=== PATIENT | male | born 1975 | race Caucasian/White ===

== ENCOUNTER 2016-07-21 16:47 | Emergency (ER) | payer OTHER | END 2016-07-21 18:11 | disposition home or self-care (01) | DX: R07.9 Chest pain, unspecified (principal) ==

== ENCOUNTER 2017-07-29 16:34 | Outpatient (CLI) | payer OTHER ==
--- NOTE | 2017-07-30 15:46 | MRI Report ---
EXAM: MRI LUMBAR SPINE WITHOUT CONTRAST EXAM DATE: 07/29/2017 04:45 PM. CLINICAL HISTORY: Low back pain. COMPARISON: Lumbar spine MRI from 02/22/2016. TECHNIQUE: Multiplanar, multisequence T1-weighted and fluid-sensitive sequences of the lumbar spine f rom T12 to S1 without contrast. Other: None. FINDINGS: Spinal Cord: The conus terminates at L1. The conus medullaris and cauda equina are unremarkable. Alignment: Retrolisthesis at L5-S1 measures 5 mm, stable. Bone Marrow: Five [id number] lumbar vertebral bodies are assumed. New prominent type I Modic end plate changes are present on the left at L5-S1. Prominent type I Modic endplate changes at L4-L5 have decreased. Small chronic Schmorl's nodes are again noted at all other levels, stable. Disk Levels/Facets: T12-L1: Unremarkable on sagittal images. L1-L2: Unremarkable. L2-L3: There is a mild disk bulge with a new small right paracentral protrusion and annular fissure. This results in mild spinal canal stenosis and mild bilateral foraminal narrowing, not definitely raul nged since the prior MRI. L3-L4: Bilateral facet arthropathy is present without spinal canal or foraminal stenosis. These finds are stable. L4-L5: A disk bulge with facet arthropathy results in mild bilateral foraminal narrowing, right great er than left. However, there is no spinal canal stenosis present these findings are stable. L5-S1: Disk height loss is present with a central extrusion extending to the left foraminal region. B ilateral facet arthropathy is present. This results in mild bilateral foraminal narrowing, left great er than right, but without spinal canal stenosis. These findings are stable. Musculature: Normal. No edema or fatty atrophy. Other: The partially visualized retroperitoneum is unremarkable. IMPRESSION: 1. Normal conus medullaris and cauda equina. 2. New prominent type I Modic endplate changes are present at L5-S1 compared to the lumbar spine MRI from 02/22/2016. 3. Similar on appearance of mild multilevel degenerative changes but without significant worsening sp inal canal or foraminal stenosis compared to the prior MRI. Comment: The following findings are so common in adults without low back pain that while we report th eir presence, they must be interpreted with caution and in the context of the clinical situation. (Re praveen Elizabeth et al, Spine 2001) Prevalence of findings in patients without low back pain: Disk degeneration (any evidence): 92% Disk desiccation/T2 signal loss: 83% Disk height loss: 56% Disk bulge: 64% Disk protrusion: 32% Annular tear/high intensity zone: 38% [facility] Referring Provider Line: [phone] SITE ID: [id number]
== END 2017-07-29 16:35 | disposition home or self-care (01) ==
LOC: DI 16:34
PROVIDERS: ATTEND General Practice
DX: M51.26 Other intervertebral disc displacement, lumbar region (principal); M47.896 Other spondylosis, lumbar region; M51.36 Other intervertebral disc degeneration, lumbar region; M51.27 Other intervertebral disc displacement, lumbosacral region; M47.897 Other spondylosis, lumbosacral region; M51.37 Other intervertebral disc degeneration, lumbosacral region
CPT/HCPCS: 72148

== ENCOUNTER 2017-11-04 05:53 | Emergency (ER) | payer OTHER ==
[2017-11-04 06:30] LABS: BILIRUBIN,URINE NEGATIVE (NEGATIVE); GLUCOSE, URINE (UA) NEGATIVE (NEGATIVE); KETONES,URINE (UA) NEGATIVE (NEGATIVE); LEUKOCYTE ESTERASE, URINE NEGATIVE (NEGATIVE); NITRITE,URINE NEGATIVE (NEGATIVE); OCCULT BLOOD,URINE NEGATIVE (NEGATIVE); PH,URINE 5.5 PH (5.0-7.5); PROTEIN,URINE NEGATIVE (NEGATIVE); UROBILINOGEN,URINE 0.2 (NORMAL) E.U./dL (NORMAL)
[2017-11-04 06:33] LABS: BASOPHILS # (AUTO) 0.1 10^3/uL (0.0-0.1); BASOPHILS % (AUTO) 2.8 %; EOSINOPHILS # (AUTO) 0.3 10^3/uL (0.0-0.7); EOSINOPHILS % (AUTO) 7.6 %; HGB - HEMOGLOBIN 15.5 g/dL (14.0-18.0); LYMPHOCYTES # (AUTO) 1.8 10^3/uL (1.5-3.5); LYMPHOCYTES % (AUTO) 39.5 %; MEAN CORPUSCULAR HEMOGLOBIN 32.3 pg (27.0-31.0); MEAN CORPUSCULAR HGB CONC 34.7 g/dL (32.0-36.0); MEAN CORPUSCULAR VOLUME 92.9 fL (80.0-94.0); MEAN PLATELET VOLUME 8.9 fL (7.4-11.4); MONOCYTES # (AUTO) 0.5 10^3/uL (0.0-1.0); MONOCYTES % (AUTO) 10.2 %; NEUTROPHILS # (AUTO) 1.8 10^3/uL (1.5-6.6); NEUTROPHILS % (AUTO) 39.9 %; PLT - PLATELET COUNT 207 10^3/uL (130-450); RED BLOOD COUNT 4.82 10^6/uL (4.70-6.10); RED CELL DISTRIBUTION WIDTH 12.4 % (12.0-15.0); WHITE BLOOD COUNT 4.6 x10^3/uL (4.8-10.8)
[2017-11-04 06:34] LABS: CLARITY,URINE CLEAR (CLEAR)
--- NOTE | 2017-11-04 06:42 | ED Physician Documentation ---
PD HPI BACK PAIN - Stated complaint Stated Complaint: L SIDE/BACK PAIN - Chief complaint Chief Complaint: Abd Pain - History obtained from History obtained from: Patient - History of Present Illness Timing - onset: How many days ago (2) Timing - details: Gradual onset, Still present Location: Mid, Left Quality: Pain, Spasm, Aching. No: Similar to prior episodes Associated symptoms: No: Fever, Weakness, Numbness, Incontinent of urine, Unable to urinate Worsened by: Movement Similar symptoms before: Work up / diagnostics Recently seen: Not recently seen - Additional information Additional information: Patient is a 42 year old male with a history of lower back pain who is presenting to the emergency department for left sided flank pain. patient states that the symptoms started a few days ago. patient states that the pain is constant and is described as an ache. patient denies aggravating or alleviating factors. patient states that it is different than is previous episodes of pain. patient has not taken anyting for it. Review of Systems Ten Systems: 10 systems reviewed and negative Constitutional: denies: Fever, Chills GI: denies: Nausea, Vomiting : denies: Dysuria, Frequency, Hematuria Musculoskeletal: reports: Back pain PD PAST MEDICAL HISTORY - Past Surgical History Past Surgical History: No - Present Medications Home Medications: Ambulatory Orders Medication Instructions Recorded Confirmed Carisoprodol [Soma] 350 mg PO Q8H PRN #12 tablet 01/09/15 Ibuprofen [Motrin] 400 mg PO Q6H PRN #30 tablet 01/09/15 Oxycodone HCl/Acetaminophen 1 each PO Q6HR PRN #15 tablet 01/09/15 [Percocet 5-325 mg Tablet] Cyclobenzaprine [Flexeril] 10 mg PO TID PRN #10 tablet 11/04/17 - Allergies Allergies/Adverse Reactions: Allergies Allergy/AdvReac Type Severity Reaction Status Date / Time No Known Drug Allergies Allergy Verified 11/04/17 06:14 - Social History Does the pt smoke?: No Smoking Status: Never smoker Does the pt drink ETOH?: Yes Does the pt have substance abuse?: No - Immunizations Immunizations are current?: Yes PD ED PE NORMAL - Vitals Vital signs reviewed: Yes - General General: Alert and oriented X 3, No acute distress - HEENT HEENT: Atraumatic - Neck Neck: Supple, no meningeal sign - Cardiac Cardiac: RRR - Respiratory Respiratory: No respiratory distress - Abdomen Abdomen: Non distended - Derm Derm: Normal color, Warm and dry - Extremities Extremities: No deformity - Neuro Neuro: Alert and oriented X 3, No motor deficit, No sensory deficit, Normal speech Eye Opening: Spontaneous Motor: Obeys Commands Verbal: Oriented GCS Score: 15 PD ED PE EXPANDED - Back Back: Soft tissue tenderness (mild tenderness to palpation of left lateral thoracic region. ) Results - Vitals Vitals: Vital Signs - 24 hr 11/04/17 06:13 Temperature 36.8 C Heart Rate 77 Respiratory 16 Rate Blood Pressure 141/92 H O2 Saturation 96 Oxygen O2 Source Room air - Labs Labs: Laboratory Tests 11/04/17 11/04/17 11/04/17 06:00 06:22 06:22 WBC 4.6 L RBC 4.82 Hgb 15.5 Hct 44.8 MCV 92.9 MCH 32.3 H MCHC 34.7 RDW 12.4 Plt Count 207 MPV 8.9 Neut # (Auto) 1.8 Lymph # (Auto) 1.8 [place] # (Auto) 0.5 Eos # (Auto) 0.3 Baso # (Auto) 0.1 Absolute Nucleated RBC 0.00 Nucleated RBC % 0.1 Sodium 134 L Potassium 4.0 Chloride 101 Carbon Dioxide 25 Anion Gap 8.0 BUN 14 Creatinine 0.7 Estimated GFR (MDRD) 124 Glucose 108 H Calcium 9.2 Total Bilirubin 1.1 H AST 59 H ALT 137 H Alkaline Phosphatase 63 Total Protein 8.3 H Albumin 4.5 Globulin 3.8 Albumin/Globulin Ratio 1.2 Lipase 24 Urine Color YELLOW Urine Clarity CLEAR Urine pH 5.5 Ur Specific [place] 1.020 Urine Protein NEGATIVE Urine Glucose (UA) NEGATIVE Urine Ketones NEGATIVE Urine Occult Blood NEGATIVE Urine Nitrite NEGATIVE Urine Bilirubin NEGATIVE Urine Urobilinogen 0.2 (NORMAL) Ur Leukocyte Esterase NEGATIVE Ur Microscopic Review NOT INDICATED Urine Culture Comments NOT INDICATED PD MEDICAL DECISION MAKING - ED course Complexity details: reviewed old records, reviewed results, re-evaluated patient , considered differential, d/w patient ED course: Patient was seen and examined at bedside. Urine was collected and labs were drawn. patient was treated with toradol and decadron. Patient's diagnostics were within normal limits aside from a slight bump in his lfts which have been elevated in the past. patient required no further work up and was stable for discharge with outpatient follow up. Departure - Departure Disposition: 01 Home, Self Care Clinical Impression: Strain of back muscle Condition: Good Instructions: Back Pain Relieve Follow-Up: primary,care provider [Other] - Within 3 Days Prescriptions: Cyclobenzaprine [Flexeril] 10 mg PO TID PRN #10 tablet PRN Reason: Spasms Comments: Your diagnostics were within normal limits today aside from an elevation in your liver enzymes. You should avoid tylenol and alcohol. You should follow up to trend your liver function, but it is on the opposite side of your body and unlikely causing the symptoms. You can continue with ibuprofen 600mg and the flexeril. You should follow up with your doctor if symptoms persist. You may return to the emergency department at any time for new, worsening or uncontrollable symptoms. Forms: Activity restrictions
[2017-11-04] MEDS ORDERED: DEXAMETHASONE 10 MG/ML VIAL PO STA (06:52)
[2017-11-04] MEDS ORDERED: KETOROLAC 60 MG/2 ML VIAL IM STA (06:52)
[2017-11-04 07:03] LABS: ALBUMIN 4.5 g/dL (3.2-5.5); ALBUMIN/GLOBULIN RATIO 1.2 (1.0-2.2); BILIRUBIN,TOTAL 1.1 mg/dL (0.2-1.0); CALCIUM 9.2 mg/dL (8.5-10.3); CREATININE 0.7 mg/dL (0.6-1.2); TOTAL PROTEIN 8.3 g/dL (6.7-8.2)
[2017-11-04] MEDS ORDERED: CHERRY SYRUP 10 ML UDC PO ONE (07:10)
[2017-11-04 07:15] VITALS: BP 133/81
== END 2017-11-04 07:14 | disposition home or self-care (01) ==
LOC: ED 05:53
DX: S39.012A Strain of muscle, fascia and tendon of lower back, initial encounter (principal); R74.8 Abnormal levels of other serum enzymes
CPT/HCPCS: 36415; 80053; 81003; 83690; 85025; 96372; 99283; A9270; 81001; 87086

== ENCOUNTER 2020-02-16 12:09 | Emergency (ER) | payer OTHER ==
[2020-02-16] MEDS ORDERED: KETOROLAC 60 MG/2 ML VIAL IM STA (13:24)
--- NOTE | 2020-02-16 13:30 | ED Physician Documentation ---
History of Present Illness - Stated complaint Stated Complaint: LOWER BACK PX - Chief complaint Chief Complaint: Back Pain - History obtained from History obtained from: Patient - Additonal information Additional information: Patient comes emergency department complaining of a flareup of his chronic low back pain. The patient states he did not have any direct trauma and that usually when he has a flareup, it is just caused by some normal movement done just the "wrong way". The patient states he is followed by [facility] orthopedics and is not a candidate for surgery. He states he usually just manages his back pain flareups at home, but that this time it has been really bad. He denies any loss of motor or sensory function in his lower extremities and denies any loss of bowel or bladder function. No fevers. No other complaints at this time. Review of Systems Ten Systems: 10 systems reviewed and negative Constitutional: reports: Reviewed and negative. denies: Fever Eyes: reports: Reviewed and negative Ears: reports: Reviewed and negative Nose: reports: Reviewed and negative Throat: reports: Reviewed and negative Cardiac: reports: Reviewed and negative Respiratory: reports: Reviewed and negative GI: reports: Reviewed and negative : reports: Reviewed and negative. denies: Incontinent Skin: reports: Reviewed and negative Musculoskeletal: reports: Back pain Neurologic: reports: Reviewed and negative. denies: Focal weakness Psychiatric: reports: Reviewed and negative Endocrine: reports: Reviewed and negative Immunocompromised: reports: Reviewed and negative PD PAST MEDICAL HISTORY - Past Surgical History Past Surgical History: No - Present Medications Home Medications: Ambulatory Orders Medication Instructions Recorded Confirmed Carisoprodol [Soma] 350 mg PO Q8H PRN #12 tablet 01/09/15 Ibuprofen [Motrin] 400 mg PO Q6H PRN #30 tablet 01/09/15 Oxycodone HCl/Acetaminophen 1 each PO Q6HR PRN #15 tablet 01/09/15 [Percocet 5-325 mg Tablet] Cyclobenzaprine [Flexeril] 10 mg PO TID PRN #10 tablet 11/04/17 Cyclobenzaprine [Flexeril] 10 mg PO TID PRN #20 tablet 02/16/20 Oxycodone HCl/Acetaminophen 1 - 2 each PO Q6H PRN #14 tablet 02/16/20 [Percocet 5-325 mg Tablet] - Allergies Allergies/Adverse Reactions: Allergies Allergy/AdvReac Type Severity Reaction Status Date / Time No Known Drug Allergies Allergy Verified 02/16/20 12:17 - Social History Does the pt smoke?: No Smoking Status: Never smoker Does the pt drink ETOH?: Yes Does the pt have substance abuse?: No - Immunizations Immunizations are current?: Yes PD ED PE NORMAL - Vitals Vital signs reviewed: Yes - General General: Alert and oriented X 3, No acute distress (Patient is standing and holding his back, and appears uncomfortable, but otherwise no apparent distress.) - HEENT HEENT: Atraumatic, PERRL, EOMI, Moist mucous membranes - Neck Neck: Supple, no meningeal sign - Respiratory Respiratory: No respiratory distress - Back Back: No CVA TTP, No spinal TTP, Other (Tenderness of bilateral paraspinal musculature in the lumbar region.) - Derm Derm: Normal color, Warm and dry, No rash - Extremities Extremities: No deformity - Neuro Neuro: Alert and oriented X 3, senior biostatistician 2-12 intact, No motor deficit, No sensory deficit, Normal speech - Psych Psych: Normal mood, Normal affect Results - Vitals Vitals: Vital Signs - 24 hr 02/16/20 12:16 Temperature 36.8 C Heart Rate 106 H Respiratory 17 Rate Blood Pressure 156/88 H O2 Saturation 98 Oxygen O2 Source Room air PD MEDICAL DECISION MAKING - ED course Complexity details: reviewed old records, considered differential, d/w patient ED course: The patient had a longstanding history of low back problems and had had these symptoms before. He did not have any concerning symptoms, such as fever, loss of motor function, or incontinence. He driven himself here, so I gave him a dose of Toradol IM. We have discussed follow-up with orthopedics and I have given him prescriptions for analgesia and muscle relaxants. We have discussed the usual indications for return. Departure - Departure Disposition: 01 Home, Self Care Clinical Impression: Back pain Qualifiers: Back pain location: low back pain Chronicity: acute Back pain laterality: bilateral Sciatica presence: without sciatica Qualified Code(s): M54.5 - Low back pain Condition: Stable Instructions: ED Low Back Pain Injury Prescriptions: Cyclobenzaprine [Flexeril] 10 mg PO TID PRN #20 tablet PRN Reason: Spasms Oxycodone HCl/Acetaminophen [Percocet 5-325 mg Tablet] 1 - 2 each PO Q6H PRN #14 tablet PRN Reason: pain
[2020-02-16 13:52] VITALS: BP 145/86
== END 2020-02-16 13:54 | disposition home or self-care (01) ==
LOC: ED 12:09
DX: M54.5 Low back pain (principal)
CPT/HCPCS: 96372; 99283; 99284

== ENCOUNTER 2020-12-23 09:49 | Emergency (ER) | payer OTHER ==
[2020-12-23] MEDS ORDERED: KETOROLAC 60 MG/2 ML VIAL IM STA (12:10)
--- NOTE | 2020-12-23 12:13 | ED Physician Documentation ---
History of Present Illness - Stated complaint Stated Complaint: BACK PX - Chief complaint Chief Complaint: Back Pain - History obtained from History obtained from: Patient - Additonal information Additional information: Patient comes emergency department chief complaint of low back pain that started several days ago. Patient states he turned "the wrong way" and said it felt a sudden twinge in his back. He has a history of herniated disks and degenerative disc disease and has had a number of MRIs in the past. He states that he has not had any more significant injury than this for some time, but has flareups from time to time often triggered by turning or twisting. Patient states that he has been trying icing and heating at home and just has not been able to get the symptoms under control. He states that he has some pain radiating down through his right buttock and into his posterior right thigh. No loss of bowel or bladder function. No numbness or tingling in his lower extremities. Review of Systems Ten Systems: 10 systems reviewed and negative Constitutional: reports: Reviewed and negative Eyes: reports: Reviewed and negative Ears: reports: Reviewed and negative Nose: reports: Reviewed and negative Throat: reports: Reviewed and negative Cardiac: reports: Reviewed and negative Respiratory: reports: Reviewed and negative GI: reports: Reviewed and negative : reports: Reviewed and negative Skin: reports: Reviewed and negative Musculoskeletal: reports: Back pain, Extremity pain Neurologic: reports: Reviewed and negative Psychiatric: reports: Reviewed and negative Endocrine: reports: Reviewed and negative Immunocompromised: reports: Reviewed and negative PD PAST MEDICAL HISTORY - Past Surgical History Past Surgical History: No - Present Medications Home Medications: Ambulatory Orders Medication Instructions Recorded Confirmed Carisoprodol [Soma] 350 mg PO Q8H PRN #12 tablet 01/09/15 Ibuprofen [Motrin] 400 mg PO Q6H PRN #30 tablet 01/09/15 Oxycodone HCl/Acetaminophen 1 each PO Q6HR PRN #15 tablet 01/09/15 [Percocet 5-325 mg Tablet] Cyclobenzaprine [Flexeril] 10 mg PO TID PRN #10 tablet 11/04/17 Cyclobenzaprine [Flexeril] 10 mg PO TID PRN #20 tablet 02/16/20 Oxycodone HCl/Acetaminophen 1 - 2 each PO Q6H PRN #14 tablet 02/16/20 [Percocet 5-325 mg Tablet] Cyclobenzaprine [Flexeril] 10 mg PO TID PRN #20 tablet 12/23/20 HYDROcod/ACETAM 5/325 [[place] 5/325] 1 - 2 tablet PO Q6H PRN #14 tablet 12/23/20 - Allergies Allergies/Adverse Reactions: Allergies Allergy/AdvReac Type Severity Reaction Status Date / Time No Known Drug Allergies Allergy Verified 12/23/20 10:04 - Social History Does the pt smoke?: No Smoking Status: Never smoker Does the pt drink ETOH?: Yes Does the pt have substance abuse?: No - Immunizations Immunizations are current?: Yes PD ED PE NORMAL - Vitals Vital signs reviewed: Yes - General General: Alert and oriented X 3, No acute distress, Well developed/nourished - HEENT HEENT: Atraumatic, PERRL, EOMI, Moist mucous membranes - Neck Neck: Supple, no meningeal sign - Respiratory Respiratory: No respiratory distress - Abdomen Abdomen: Soft, Non tender, Non distended - Back Back: No spinal TTP, Other (Tenderness palpation Right lumbar paraspinal musculature, mild. Mild right SI tenderness.) - Derm Derm: Warm and dry - Extremities Extremities: No deformity - Neuro Neuro: Alert and oriented X 3 - Psych Psych: Normal mood, Normal affect Results - Vitals Vitals: Vital Signs - 24 hr 12/23/20 10:01 Temperature 36.7 C Heart Rate 93 Respiratory 16 Rate Blood Pressure 146/79 H O2 Saturation 96 Oxygen O2 Source Room air PD MEDICAL DECISION MAKING - ED course Complexity details: considered differential, d/w patient ED course: Patient was treated symptomatically with Toradol and discharged with prescriptions for analgesia and muscle relaxation. We have discussed the usual indications for return as well as follow-up and symptomatic management at home. Departure - Departure Disposition: Home, Self Care Clinical Impression: Back pain Qualifiers: Back pain location: low back pain Chronicity: acute Back pain laterality: right Sciatica presence: with sciatica Sciatica laterality: sciatica of right side Qualified Code(s): M54.41 - Lumbago with sciatica, right side Condition: Stable Instructions: ED Neck Back Pain General, ED Sciatica Prescriptions: Cyclobenzaprine [Flexeril] 10 mg PO TID PRN #20 tablet PRN Reason: Spasms HYDROcod/ACETAM 5/325 [[place] 5/325] 1 - 2 tablet PO Q6H PRN #14 tablet PRN Reason: Pain
[2020-12-23 12:34] VITALS: BP 175/82
== END 2020-12-23 12:34 | disposition home or self-care (01) ==
LOC: ED 09:49
DX: M54.41 Lumbago with sciatica, right side (principal)
CPT/HCPCS: 96372; 99283; 99284

== ENCOUNTER 2021-04-14 08:18 | Outpatient (CLI) | payer OTHER ==
--- NOTE | 2021-04-14 09:30 | MRI Report ---
PROCEDURE: Lumbar Spine W/O INDICATIONS: LOW BACK PAIN TECHNIQUE: Noncontrast sagittal T1 spin echo and T2 fast echo, sagittal STIR, axial T1 and T2 fast spin echo thr ough the lumbar spine. Axial and oblique coronal T1 spin echo and STIR through the sacrum. In cases with scoliosis, additional coronal T2 fast spin echo may be performed. COMPARISON: None. FINDINGS: Alignment and Curvature: Straightening of the normal lordotic curvature. Trace retrolisthesis of L5 on S1. Bone Marrow: Multilevel endplate degenerative sclerosis and spurring. Diffuse facet arthropathy. No evidence of acute fracture. Few small scattered Schmorl's nodes are present. There is adjacent marrow edema at the L4 inferior endplate Schmorl's node . Spinal Cord: Conus medullaris terminates at the L1 level. Visualized cord demonstrates normal signa l and size. Paraspinous Soft Tissues: No paravertebral masses. T12-L1: Normal in appearance. L1-L2: No canal stenosis. Mild bilateral foraminal narrowing L2-L3: Right paramedian disc protrusion. There is mild right-sided central canal narrowing. Partia l effacement of the left and right lateral recesses with asymmetric appearance, right greater than le ft. Mild bilateral foraminal stenoses L3-L4: No canal or lateral recess narrowing. Mild bilateral foraminal stenoses, although right slig htly greater than left. L4-L5: No canal stenosis. Partial effacement of the left and right lateral recesses with symmetric appearance. Mild bilateral foraminal narrowing L5-S1: No canal stenosis. Partial effacement of the left and right lateral recesses with symmetric appearance. Severe right foraminal stenosis with nerve root compression. Moderate left foraminal sten osis. Sacrum: Visualized sacral plexus appears normal. IMPRESSION: Straightening of the normal lordosis with trace retrolisthesis of L5 on S1. Numerous small Schmorl's nodes, although adjacent marrow edema at the L4 inferior endplate level. Diffuse bilateral foraminal stenoses as detailed above by spinal level. Asymmetric subarticular narrowing, right greater than left at the L2-L3 level. Reviewed by: Brad Quezada MD on 04/14/2021 9:29 AM PST Approved by: Brad Quezada MD on 04/14/2021 9:29 AM PST Station ID: [id number]
== END 2021-04-14 08:19 | disposition home or self-care (01) ==
LOC: DI 08:18
DX: M51.26 Other intervertebral disc displacement, lumbar region (principal); M48.061 Spinal stenosis, lumbar region without neurogenic claudication; M48.07 Spinal stenosis, lumbosacral region

== ENCOUNTER 2023-01-12 08:44 | Outpatient (CLI) | payer OTHER ==
--- NOTE | 2023-01-12 10:15 | MRI Report ---
PROCEDURE: LUMBAR SPINE WO INDICATIONS: DORSALGIA TECHNIQUE: Noncontrast sagittal T1 spin echo and T2 fast echo, sagittal STIR, axial T1 and T2 fast spin echo thr ough the lumbar spine. In cases with scoliosis, additional coronal T2 fast spin echo may be performe d. COMPARISON: None. FINDINGS: Image quality: Excellent. Alignment and Curvature: Mild straightening of normal lumbar lordosis. No spondylolisthesis. Bone Marrow: Multilevel degenerative endplate changes with Schmorl's nodes, most pronounced at L2-L3, L4-L5 and L5-S1. No acute vertebral body compression fractures. Spinal Cord: Conus medullaris terminates at the L1-L2 level. Visualized cord demonstrates normal si gnal and size. Paraspinous Soft Tissues: No paravertebral masses. T12-L1: No central canal or neuroforaminal stenosis. L1-L2: No central canal or neuroforaminal stenosis. L2-L3: Disc desiccation. Minimal posterior disc bulge. No central canal stenosis. Facet arthropath y. No neuroforaminal stenosis. L3-L4: Minimal posterior disc bulge. Facet arthropathy. Epidural lipomatosis. No central canal sten osis. No neuroforaminal stenosis. L4-L5: Disc desiccation and mild height loss. Small posterior disc bulge. Facet arthropathy. Mild b ilateral neuroforaminal stenosis. L5-S1: No central canal stenosis. Facet arthropathy. Moderate bilateral neuroforaminal stenosis. IMPRESSION: 1.Degenerative changes of the lumbar spine. Multilevel degenerative endplate changes with Schmorl's n odes, some with surrounding edema, likely representing acute Schmorl's node formation. 2.There is moderate bilateral neuroforaminal stenosis at L5-S1 and mild bilateral neuroforaminal sten osis at L4-L5. No significant central canal stenosis. Reviewed by: Phil Goldstein MD on 01/12/2023 10:14 AM PDT Approved by: Phil Goldstein MD on 01/12/2023 10:14 AM PDT Station ID: [id number]
== END 2023-01-12 08:45 | disposition home or self-care (01) ==
LOC: DI 08:44
DX: M47.816 Spondylosis without myelopathy or radiculopathy, lumbar region (principal); M51.46 Schmorl's nodes, lumbar region; M48.07 Spinal stenosis, lumbosacral region; M48.061 Spinal stenosis, lumbar region without neurogenic claudication

== ENCOUNTER 2023-08-05 09:13 | Outpatient (CLI) | payer OTHER | END 2023-08-05 09:14 | disposition home or self-care (01) | LOC: DI 09:13 | PROVIDERS: ATTEND Preventive Medicine Aerospace Medicine | DX: R07.9 Chest pain, unspecified (principal) | CPT/HCPCS: 93307 ==